=== PATIENT | female | born 1995 | race American Indian/Alaskan Native ===

== ENCOUNTER 2017-01-25 21:05 | Emergency (ER) | payer SELFPAY ==
[2017-01-25] MEDS ORDERED: ZOFRAN PO ONE (21:41)
[2017-01-25] MEDS ORDERED: ZOFRAN ODT ONE (21:46)
[2017-01-25 22:21] LABS: Basophils % (Auto) 0.2 % (0.0-1.8); Hematocrit 44.3 % (30.3-42.9); Hemoglobin 14.3 gm/dl (10.1-14.3); Mean Corpuscular HGB Conc 32 % (30-34); Mean Corpuscular Hemoglobin 31 pg (28-32); Mean Corpuscular Volume 94 fl (79-97); Platelet Count 314 K/mm3 (140-440); Red Blood Count 4.69 M/mm3 (3.65-5.03); Red Cell Distribution Width 15.5 % (13.2-15.2); White Blood Count 9.5 K/mm3 (4.5-11.0)
[2017-01-25 22:37] LABS: Alanine Aminotransferase 16 units/L (7-56); Albumin 4.4 g/dL (3.9-5); Albumin/Globulin Ratio 1.4 %; Alkaline Phosphatase 56 units/L (35-129); Anion Gap 21 mmol/L; BUN/Creatinine Ratio 24; Blood Urea Nitrogen 12 mg/dL (7-17); Calcium 8.9 mg/dL (8.4-10.2); Carbon Dioxide 22 mmol/L (22-30); Chloride 99.5 mmol/L (98-107); Glucose 111 mg/dL (65-100); Lipase 15 units/L (13-60); Potassium 3.2 mmol/L (3.6-5.0); Sodium 139 mmol/L (137-145); Total Protein 7.5 g/dL (6.3-8.2)
[2017-01-26] MEDS ORDERED: K-DUR PO ONE (00:50)
[2017-01-26] MEDS ORDERED: DILAUDID IV ONE ×2 (00:55→02:36)
[2017-01-26] MEDS ORDERED: REGLAN IV ONE (00:56)
[2017-01-26] MEDS ORDERED: NACL 0.9% 1000 ML 1,000 ML IV ONE ×2 (00:56→04:36)
--- NOTE | 2017-01-26 01:08 | Emergency Department Report ---
HPI - General Chief Complaint: Abdominal Pain Time Seen by Provider: 01/26/17 00:50 - HPI HPI: This is a 21-year-old -[place] female presents to the emergency department with complaint of acute on chronic upper abdominal pain that she believes is related to her gallbladder. The pain radiates towards her chest and causes severe nausea and vomiting. The patient has visited multiple ERs over the past year and knows that she has a history of gallstones. Her most recent exacerbation started last , 5-6 days ago, and she went to [facility]. She had a HIDA scan that was normal at that time but did not have any ultrasound allegedly. She was discharged from [facility] with some nausea medication and pain medication but it does not appear to be working for her. She denies any fever. She denies any other past medical history. She has seen a general surgeon and there is a plan to do a cholecystectomy but they are having trouble with the deposit. No recent travel or sick contacts at home. ED Past Medical Hx - Past Medical History Additional medical history: ineffective gallbladder - Social History Smoking Status: Never Smoker Substance Use Type: None - Medications Home Medications: Home Medications Medication Instructions Recorded Confirmed Last Taken Type Ondansetron [Zofran Odt] 4 mg PO Q8H PRN #10 tab.rapdis 01/26/17 Unknown Rx Promethazine [Phenergan] 25 mg VT Q6HR PRN #10 supp.rect 01/26/17 Unknown Rx ED Review of Systems ROS: Stated complaint: UPPER ABD PAIN Other details as noted in HPI Comment: All other systems reviewed and negative Constitutional: denies: chills, fever Eyes: denies: eye pain, eye discharge, vision change ENT: denies: ear pain, throat pain Respiratory: denies: cough, shortness of breath, wheezing Cardiovascular: chest pain. denies: palpitations Gastrointestinal: abdominal pain, nausea, vomiting Genitourinary: denies: urgency, dysuria, discharge Musculoskeletal: denies: back pain, joint swelling, arthralgia Skin: denies: rash, lesions Neurological: denies: headache, weakness, paresthesias Physical Exam - Physical Exam Vital Signs: Vital Signs 01/25/17 01/26/17 21:35 00:19 Temperature 99 F 98.0 F Pulse Rate 98 H 95 H Respiratory 18 18 Rate Blood Pressure 120/88 135/85 O2 Sat by Pulse 100 100 Oximetry Physical Exam: GENERAL: The patient is well-developed well-nourished. HENT: Normocephalic. Atraumatic. Patient has moist mucous membranes. EYES: Extraocular motions are intact. Pupils equal reactive to light bilaterally. NECK: Supple. Trachea is midline. CHEST/LUNGS: Clear to auscultation. There is no respiratory distress noted. HEART/CARDIOVASCULAR: Regular. There is no tachycardia. There is no gallop rub or murmur. ABDOMEN: Abdomen is soft. There is tenderness to palpation to the upper quadrants of the abdomen. No guarding or rebound tenderness. Patient has normal bowel sounds. There is no abdominal distention. SKIN: Skin is warm and dry. NEURO: The patient is awake, alert, and oriented. The patient is cooperative. The patient has no focal neurologic deficits. The patient has normal speech. MUSCULOSKELETAL: There is no tenderness or deformity. There is no limitation range of motion. There is no evidence of acute injury. ED Course Vital Signs 01/25/17 01/26/17 21:35 00:19 Temperature 99 F 98.0 F Pulse Rate 98 H 95 H Respiratory 18 18 Rate Blood Pressure 120/88 135/85 O2 Sat by Pulse 100 100 Oximetry ED Medical Decision Making - Lab Data Result diagrams: 01/25/17 21:48 01/25/17 21:48 - Radiology Data Radiology results: report reviewed PROCEDURE: US ABDOMEN LIMITED TECHNIQUE: Real-time sonography in multiple planes of the gallbladder fossa and CBD with imaging of the adjacent liver, pancreas, and right kidney was performed with image documentation. CPT 92669 HISTORY: Upper abd pain COMPARISON: No prior studies are available for comparison. Trauma FINDINGS: Liver: Normal size and echotexture with no evidence of cystic or solid mass lesion. Gallbladder: Fluid filled. No gallstones, wall thickening, pericholecystic fluid, or sonographic Ahmadi's sign . Intrahepatic bile ducts: Normal . Extrahepatic bile ducts: Normal . Pancreas: Normal as visualized with suboptimal depiction of the pancreatic tail. Right kidney: Normal echotexture. No focal renal mass, calculus, or hydronephrosis. Other: No free fluid. IMPRESSION: Normal Examination - Medical Decision Making This is a 21-year-old female with a history of gallstones and biliary colic who presents with abdominal pain, nausea, vomiting. Labs are mostly unremarkable except for signs of dehydration with ketones in the urine. The patient is not . No leukocytosis. No elevation in the belly labs including bilirubin , lipase and LFTs. Ultrasound was done that shows a fluid-filled gallbladder but no obvious gallstones or signs of cholecystitis. The patient already has follow-up with a general surgeon and they are just working on finances prior to having a cholecystectomy done. Vital signs stable including being afebrile. The patient was given some pain medication, nausea medication and 2 L of IV fluid resuscitation. She is feeling improved and was able to display the ability to drink fluid and keep it down and keep herself rehydrated. For these reasons she appears safe for discharge home at this time but will return to the ER with any worsening of her symptoms or any acute distress. - Differential Diagnosis cholelithiasis, cholecystitis, pancreatitis, Critical Care Time: No Critical care attestation.: If time is entered above; I have spent that time in minutes in the direct care of this critically ill patient, excluding procedure time. ED Disposition Clinical Impression: Biliary colic, Dehydration, Hypokalemia Nausea & vomiting Qualifiers: Vomiting type: unspecified Vomiting Intractability: non-intractable Qualified Code(s): R11.2 - Nausea with vomiting, unspecified Abdominal pain Qualifiers: Abdominal location: upper abdomen, unspecified Qualified Code(s): R10.10 - Upper abdominal pain, unspecified Disposition: DC-01 TO HOME OR SELFCARE Is pt being admited?: No Condition: Stable Instructions: Dehydration (ED), Biliary Colic (ED), Acute Nausea and Vomiting ( ED), Abdominal Pain (ED) Additional Instructions: Please increase your oral rehydration. Follow up with your primary care doctor and your general surgeon. Return to the emergency department with any continued intractable vomiting, development of fever, worsening of your abdominal pain, or any acute distress. Prescriptions: Ondansetron [Zofran Odt] 4 mg PO Q8H PRN #10 tab.rapdis PRN Reason: Nausea Promethazine [Phenergan] 25 mg VT Q6HR PRN #10 supp.rect PRN Reason: Nausea Referrals: PRIMARY CARE, [Primary Care Provider] - [facility] Time of Disposition: 05:35
[2017-01-26 02:40] VITALS: BP 124/90
--- NOTE | 2017-01-26 02:59 | Ultrasound Report ---
FINAL REPORT PROCEDURE: US ABDOMEN LIMITED TECHNIQUE: Real-time sonography in multiple planes of the gallbladder fossa and CBD with imaging of the adjacent liver, pancreas, and right kidney was performed with image documentation. CPT 42620 HISTORY: Upper abd pain COMPARISON: No prior studies are available for comparison. Trauma FINDINGS: Liver: Normal size and echotexture with no evidence of cystic or solid mass lesion. Gallbladder: Fluid filled. No gallstones, wall thickening, pericholecystic fluid, or sonographic Ahmadi's sign . Intrahepatic bile ducts: Normal . Extrahepatic bile ducts: Normal . Pancreas: Normal as visualized with suboptimal depiction of the pancreatic tail. Right kidney: Normal echotexture. No focal renal mass, calculus, or hydronephrosis. Other: No free fluid. IMPRESSION: Normal Examination
[2017-01-26] MEDS ORDERED: ZOFRAN IV ONE (03:04)
[2017-01-26 04:21] LABS: Bacteria,Urine 3+ /HPF (Negative); Bilirubin,Urine NEG (Negative); Blood,Urine NEG (Negative); Ketones,Urine 80 mg/dL (Negative); Leukocyte Esterase,Urine NEG (Negative); Mucus,Urine 3+ /HPF; Nitrite,Urine NEG (Negative); Urobilinogen,Urine < 2.0 mg/dL (<2.0)
== END 2017-01-26 05:53 | disposition home or self-care (01) ==
LOC: ED 21:05
DX: K80.50 Calculus of bile duct without cholangitis or cholecystitis without obstruction (principal); E86.0 Dehydration; E87.6 Hypokalemia
CPT/HCPCS: 36415; 76705; 80053; 81001; 81025; 83690; 85025; 96361; 96374; 96375; 96376; 99284; J1170; J2405; J2765; J7030; Q0162